=== PATIENT | female | born 1970 | race Caucasian/White ===

== ENCOUNTER 2016-07-04 08:48 | Outpatient (CLI) | payer OTHER ==
--- NOTE | 2016-07-04 09:59 | DIAGNOSTIC IMAGING REPORT ---
PROCEDURE: US COMPLETE PELVIC W/TRANSVAG INDICATION: AUB TECHNIQUE: Transabdominal and endovaginal jackson scale and color Doppler sonographic images of the female pelvis were obtained. COMPARISON: None. FINDINGS: TRANSABDOMINAL SCANS: The uterus measures 8.4 x 6.1 x 3.7 cm. Normal kidneys. Bladder is normal as visualized. TRANSVAGINAL SCANS: 8 mm left anterior intramuscular fibroid. Normal endometrial measures 6.8 mm. Left ovary measures 1.7 x 1.2 x 1.1 cm and right ovary 3.3 x 1.6 x 1.8 cm. There is vascular flow to both ovaries. No adnexal mass or free fluid in the cul-de-sac. IMPRESSION: 1. 8 mm fibroid
== END 2016-07-04 23:00 ==
LOC: US SRH 08:48
DX: N93.9 Abnormal uterine and vaginal bleeding, unspecified (principal); D25.9 Leiomyoma of uterus, unspecified

== ENCOUNTER 2016-10-07 19:55 | Emergency (ER) | payer OTHER ==
--- NOTE | 2016-10-07 22:41 | ED ORDER SUMMARY ---
..... Patient: TURNER LINCOLN [facility] VisitID: [id number] [place] [address] 46y, F Registration Date/Time: 10/07/2016 ORDER SHEET Weight: 83.9 kg (stated) Allergies: No Known Drug Allergy GENERAL ORDERS: US Venous Right Urgent (20:37 10/07/2016 HBivens A.R.N.P.) (Ack 20:40 CHagerty ER Conventions Assistant) (22:22 RFay) CBC w Diff Urgent (20:37 10/07/2016 HBivens A.R.N.P.) (Ack 20:40 CHagerty ER Conventions Assistant) (20:58 CHernandez R.N.) CMP Urgent (20:37 10/07/2016 HBivens A.R.N.P.) (Ack 20:40 CHagerty ER Conventions Assistant) (20:58 CHernandez R.N.) BNP Urgent (20:37 10/07/2016 HBivens A.R.N.P.) (Ack 20:40 CHagerty ER Conventions Assistant) (20:58 CHernandez R.N.) MEDICATION ORDERS: K-Dur PO 20 meq (Do not crush or chew, NOW) (22:36 10/07/2016 HBivens A.R.N.P.) (Ack 22:46 CHernandez R.N.) (22:47 CHernandez R.N.) IV FLUIDS: ORDER SHEET NOTES: [Electronically signed by Charles Marti R.N. (23:10/07/2016)] [Electronically signed by Bette Osorio.R.N.P. (23:10 10/07/2016)] [Electronically locked/signed by Charles Marti R.N. (23:10/07/2016)]
--- NOTE | 2016-10-07 22:41 | ED ORDER SUMMARY ---
..... Patient: TURNER LINCOLN OrderSheet [facility] VisitID: [id number] [place] [address] 46y, F Registration Date/Time: 10/07/2016 ORDER SHEET Weight: 83.9 kg (stated) Allergies: No Known Drug Allergy GENERAL ORDERS: US Venous Right Urgent (20:37 10/07/2016 HBivens A.R.N.P.) (Ack 20:40 CHagerty ER Equipment Tech) (22:22 RFay) CBC w Diff Urgent (20:37 10/07/2016 HBivens A.R.N.P.) (Ack 20:40 CHagerty ER Equipment Tech) (20:58 CHernandez R.N.) CMP Urgent (20:37 10/07/2016 HBivens A.R.N.P.) (Ack 20:40 CHagerty ER Equipment Tech) (20:58 CHernandez R.N.) BNP Urgent (20:37 10/07/2016 HBivens A.R.N.P.) (Ack 20:40 CHagerty ER Equipment Tech) (20:58 CHernandez R.N.) MEDICATION ORDERS: K-Dur PO 20 meq (Do not crush or chew, NOW) (22:36 10/07/2016 HBivens A.R.N.P.) (Ack 22:46 CHernandez R.N.) (22:47 CHernandez R.N.) IV FLUIDS: ORDER SHEET NOTES: [Electronically signed by Charles Marti R.N. (23:10/07/2016)] [Electronically signed by Bette Osorio.R.N.P. (23:10 10/07/2016)] [Electronically locked/signed by Charles Marti R.N. (23:10/07/2016)]
--- NOTE | 2016-10-07 22:41 | ED CLINICAL REPORT ---
Clinical Report - Physicians/Mid Levels [facility] [address] [place] [address] 10/07/2016 19:54 Patient: TURNER LINCOLN Time Seen: 2024; initial patient contact, initial documentation, patient care assumed. Arrived- By private vehicle. Historian- patient. HISTORY OF PRESENT ILLNESS Chief Complaint: LOWER EXTREMITY SWELLING. Modifying factors- worsened by walking. (relieved with otc diuretic). Quality not described as "pain". No radiation. This started today and is still present. Symptoms located in the area of the right ankle, right leg and right foot. The patient has had swelling, but not had redness. No difficulty walking. No bladder dysfunction, bowel dysfunction, sensory loss or motor loss. ( says since her flight sunday, the swelling is taking longer to go away and today she could push down on it with her finger and leave a finger print and she had never been able to do that before, pt would like rx water pills, she has been taking otc ones). Patient denies an injury. Similar symptoms previously: Chronically, milder. Recent medical care: Not recently seen/assessed. REVIEW OF SYSTEMS No chest pain or difficulty breathing. All systems otherwise negative, except as recorded above. PAST HISTORY See nurses notes. SOCIAL HISTORY Light tobacco smoker. Occasional alcohol use; consumes wine. No drug use. No recent travel. Is a local resident. FAMILY HISTORY Negative. ADDITIONAL NOTES The nursing notes have been reviewed with agreement regarding the chief complaint, HPI, ROS, PMH and patient medications and allergies. PHYSICAL EXAM Vital Signs: 10/07/2016 20:10 BP: 176/66. HR: 71. RR: 16. O2 saturation: 96%. Temp: 98.5 F. Pain level now: 0/10. Have been reviewed as normal and appear to be correct. Appearance: Alert. Oriented X3. No acute distress. Eyes: Pupils equal, round and reactive to light. Eyes normal inspection. Neck: Normal inspection. Neck supple. CVS: Normal heart rate and rhythm. Heart sounds normal. Respiratory: No respiratory distress. Breath sounds normal. Abdomen: Soft and nontender. No organomegaly. Back: Normal inspection. No tenderness. ROM normal. Skin: Skin intact. Skin warm and dry. Normal skin color. Normal skin turgor. Extremities: Lower extremities exhibit normal ROM. Lower extremity edema present. No signs of infection involving the lower extremities. Mild 1+ pitting edema of the right lower extremity involving the foot. No calf tenderness. Extremities otherwise negative. Gait: Normal gait. No limping gait. She was able to bear weight. Neuro, Vascular and Tendons: No pulse deficit present. Lower extremity capillary refill not prolonged. Neuro: Oriented X 3. No motor deficit. No sensory deficit. LABS, X-RAYS, AND EKG Lower Extremity Sonography: Negative study. verbal report from [employer]. Interpretation time: 2215. Laboratory Tests: CBC w Diff: (PATRICIA: 10/07/2016 20:50) ( [facility] 10/07/2016 21:19) Final results Test Result Flag Units (Reference) WHITE BLOOD COUNT 11.2 K/uL (4.5-11.5) RED BLOOD COUNT 4.08 M/uL (4.00-5.20) HEMOGLOBIN 13.1 gm/dL (12.0-16.0) HEMATOCRIT 38.1 % (36.0-46.0) MEAN CELL VOLUME 94 fL (80-100) MEAN CORPUSCULAR HGB 32 pg (26-34) MEAN CORPUSCULAR HGB CONC 34 g/dL (31-37) RED CELL DISTRIBUTION WIDTH 14.4 % (11.6-14.8) PLATELET COUNT 335 K/uL (150-400) NEUTROPHIL % 61.8 % (50-75) LYMPH % 27.6 % (25-40) MONO % 6.7 % (3-14) EOSINOPHIL % 3.6 % (0-4) BASOPHIL % 0.3 % (0-2) BNP: (PATRICIA: 10/07/2016 20:50) ( MsgRcvd 10/07/2016 21:42) Final results Test Result Flag Units (Reference) B-TYPE NATRIURETIC PEPTIDE 45.5 pg/ml (5-100) CMP: (PATRICIA: 10/07/2016 20:50) ( MsgRcvd 10/07/2016 21:30) Final results Test Result Flag Units (Reference) GLUCOSE 82 mg/dL (70-110) BUN 14 mg/dL (7-18) CREATININE 0.7 mg/dL (0.6-1.3) Estimated GFR >60 mL/min Estimated GFR- >60 mL/min Note: Persistent reduction over 3 months in eGFR<60 mL/min/1.73 m2 defines CKD. Patients with eGFR values>=60 mL/min/1.73 m2 may also have CKD if evidence ofpersistent proteinuria. Additional information may be foundat www.kidney.org. SODIUM 134 L mmol/L (136-145) POTASSIUM 3.3 L mmol/L (3.5-5.1) CHLORIDE 103 mmol/L (98-107) CARBON DIOXIDE 25 mmol/L (21-32) CALCIUM 8.8 mg/dL (8.5-10.1) TOTAL PROTEIN 7.4 g/dL (6.4-8.2) ALBUMIN 3.7 g/dL (3.3-5.0) BILIRUBIN, TOTAL 0.4 mg/dL (0.0-1.0) ALKALINE PHOSPHATASE 50 U/L (46-116) AST (SGOT) 14 L U/L (15-37) ALT (SGPT) 15 U/L (12-78) . PROGRESS AND PROCEDURES Course of Care: had discussion with pt over concerns of consistent use of diuretics could deplete her k, encouraged to f/u with pcp. Patient counseled in person regarding the patient's stable condition and diagnosis. 22:40. Differential Diagnosis: Other possible considerations: dvt, chf, renal insufficiency, dependant edema, peripheral vascular disease. Above considerations are based on history, physical exam, reassessment, laboratory data and other information. Differential diagnosis was discussed with patient. Disposition: Discharged home in good and unchanged condition (22:41). Condition: good and stable. CLINICAL IMPRESSION Right pedal edema secondary to unknown cause. No congestive heart failure, chronic venous insufficiency, cor pulmonale or hypoalbuminemia. INSTRUCTIONS Warnings: Further evaluation is necessary in order to recheck abnormal lab (must have potassium monitored if continuing to take diuretics, as discussed). GENERAL WARNINGS: Return or contact your physician immediately if your condition worsens or changes unexpectedly, if not improving as expected, or if other problems arise. Specifically return if problem worsens. Prescription Medications: HCTZ 25 mg: Take 1 orally every 24 hours. Dispense fifteen (15). No refills. Follow-up: Follow up with your doctor in about three days even if well. Call for an appointment. Summary of care provided to patient. Understanding of the discharge instructions verbalized by patient. (Electronically signed by Bette Osorio A.R.N.P. 10/07/2016 23:10)
--- NOTE | 2016-10-07 22:41 | ED NURSING NOTES ---
Clinical Report - Nurses [facility] [place] [address] 10/07/2016 19:54 Patient: TURNER LINCOLN TRIAGE Triage time 20:11. Acuity: LEVEL 4. Chief Complaint: RIGHT LOWER EXTREMITY PAIN and SWELLING. Location of symptoms- right leg and right foot. --20:20 Charles Marti R.N. 20:10 10/07/16. BP: 176/66. HR: 71. RR: 16. O2 saturation: 96%. Temp: 98.5 F (oral). Pain level now: 0/10. --20:20 Charles Marti R.N. Weight: 83.9 kg stated. Height/Length: 66 inches Per Patient. BMI: 29.9. --20:17 Charles Marti R.N. Medications None. --20:14 Charles Marti R.N. Medication/allergy information source: the patient. --20:20 Charles Marti R.N. Allergies No Known Drug Allergy. --20:14 Charles Marti R.N. History Arrived by private vehicle. Historian: patient. Accompanied by family. ( Noticed swelling on her right leg down to ankle today, with pain on the back of the leg behind the knee. Returned from [place] on Sunday. Denies SOB or CP.). Provoking / relieving factors: worsened by standing and walking; relieved by lying down. She has had swelling to right lower leg and right ankle (today). Treatment SURGERY SCHEDULING COORDINATOR: None. PAST MEDICAL HX: Negative. SURGERY HX: No history of previous surgery. SOCIAL HX: Light tobacco smoker (cigarette)- less than 1/2 a pack per day. Occasional alcohol use; consumes wine by the glass. --20:20 Charles Marti R.N. ADDITIONAL SURGERIES: no known surgeries. Interventions ID band on patient. To room. --20:20 Charles Marti R.N. PHYSICAL ASSESSMENT Ambulatory to room. GENERAL / NEURO / PSYCH: Oriented X 4. Alert. Appears in no acute distress. EXTREMITIES: Extremity pulses are within normal limits. Extremities exhibit normal ROM. Neuro-vascular status intact to the extremity. Normal gait. Right leg: swelling. Right ankle: swelling. ( Pain on the back of the right knee above her calf.). SKIN: Skin intact. Skin is warm and dry. --20:21 Charles Marti R.N. NURSING PROGRESS NOTES Extremity elevated. Neuro-vascular extremity check. Patient identifiers checked. Call light placed in reach. Side rails up x 1. Bed placed in lowest position. Brakes of bed on. Patient ready for evaluation- chart flagged and ED physician and DRY WALL FINISHER notified. --20:21 Charles Marti R.N. Patient ID band checked for patient name and birthdate. Blood samples drawn from the right antecubital space with Vacutainer and butterfly by nurse per protocol ; labeled in presence of the patient and sent to lab: [facility] set. --20:59 Charles Marti R.N. 21:19 10/07/16. BP: 170/84. HR: 57. RR: 16. O2 saturation: 97%. --21:21 Charles Marti R.N. The patient is resting quietly. Overall patient status is the same- she states feels the same. GENERAL / NEURO / PSYCH: The patient reports pain that is located in the right ankle that is mild in severity (describes right ankle pain as achy). Alert. Oriented X 4. RESPIRATORY: No respiratory distress. CVS: Capillary refill less than 2 seconds. EXTREMITIES: Neuro-vascular status intact to the extremities. SKIN: Skin is warm and dry. --21:21 Charles Marti R.N. 22:47 10/07/2016 K-DUR (Potassium Chloride Genie ER) PO 20 meq given. Allergies verified and confirmed 5 rights. --22:47 Charles Marti R.N. DISPOSITION / DISCHARGE Condition at departure: improved. No learning barriers present. Discharge instructions provided and reviewed with the patient. Reviewed medication(s) side effects, precautions, dosing and course information. Prescription(s) given to the patient. Patient verbalized understanding. Written instructions provided in Bengali. The patient was discharged home and accompanied by spouse. She left the Emergency Department ambulatory and via private vehicle. Spouse driving. --22:56 Charles Marti R.N. 22:54 10/07/16. BP: 153/72. HR: 60. RR: 16. Temp: 98.1 F. --22:56 Charles Marti R.N. Departure time: 23:09. --23:09 Charles Marti R.N. Locked/Released at 10/07/2016 23:09 by Charles Marti R.N.
--- NOTE | 2016-10-07 22:41 | ED NURSING NOTES ---
Clinical Report - Nurses [facility] [address] [place] [address] 10/07/2016 19:54 Patient: TURNER LINCOLN TRIAGE Triage time 20:11. Acuity: LEVEL 4. Chief Complaint: RIGHT LOWER EXTREMITY PAIN and SWELLING. Location of symptoms- right leg and right foot. --20:20 Charles Marti R.N. 20:10 10/07/16. BP: 176/66. HR: 71. RR: 16. O2 saturation: 96%. Temp: 98.5 F (oral). Pain level now: 0/10. --20:20 Charles Marti R.N. Weight: 83.9 kg stated. Height/Length: 66 inches Per Patient. BMI: 29.9. --20:17 Charles Marti R.N. Medications None. --20:14 Charles Marti R.N. Medication/allergy information source: the patient. --20:20 Cahrles Marti R.N. Allergies No Known Drug Allergy. --20:14 Charles Marti R.N. History Arrived by private vehicle. Historian: patient. Accompanied by family. ( Noticed swelling on her right leg down to ankle today, with pain on the back of the leg behind the knee. Returned from [place] on Sunday. Denies SOB or CP.). Provoking / relieving factors: worsened by standing and walking; relieved by lying down. She has had swelling to right lower leg and right ankle (today). Treatment INSIDE ACCOUNT EXECUTIVE: None. PAST MEDICAL HX: Negative. SURGERY HX: No history of previous surgery. SOCIAL HX: Light tobacco smoker (cigarette)- less than 1/2 a pack per day. Occasional alcohol use; consumes wine by the glass. --20:20 Charles Marti R.N. ADDITIONAL SURGERIES: no known surgeries. Interventions ID band on patient. To room. --20:20 Charles Marti R.N. PHYSICAL ASSESSMENT Ambulatory to room. GENERAL / NEURO / PSYCH: Oriented X 4. Alert. Appears in no acute distress. EXTREMITIES: Extremity pulses are within normal limits. Extremities exhibit normal ROM. Neuro-vascular status intact to the extremity. Normal gait. Right leg: swelling. Right ankle: swelling. ( Pain on the back of the right knee above her calf.). SKIN: Skin intact. Skin is warm and dry. --20:21 Charles Marti R.N. NURSING PROGRESS NOTES Extremity elevated. Neuro-vascular extremity check. Patient identifiers checked. Call light placed in reach. Side rails up x 1. Bed placed in lowest position. Brakes of bed on. Patient ready for evaluation- chart flagged and ED physician and ROAD OILER notified. --20:21 Charles Marti R.N. Patient ID band checked for patient name and birthdate. Blood samples drawn from the right antecubital space with Vacutainer and butterfly by nurse per protocol ; labeled in presence of the patient and sent to lab: [facility] set. --20:59 Charles Marti R.N. 21:19 10/07/16. BP: 170/84. HR: 57. RR: 16. O2 saturation: 97%. --21:21 Charles Marti R.N. The patient is resting quietly. Overall patient status is the same- she states feels the same. GENERAL / NEURO / PSYCH: The patient reports pain that is located in the right ankle that is mild in severity (describes right ankle pain as achy). Alert. Oriented X 4. RESPIRATORY: No respiratory distress. CVS: Capillary refill less than 2 seconds. EXTREMITIES: Neuro-vascular status intact to the extremities. SKIN: Skin is warm and dry. --21:21 Charles Marti R.N. 22:47 10/07/2016 K-DUR (Potassium Chloride Genie ER) PO 20 meq given. Allergies verified and confirmed 5 rights. --22:47 Charles Marti R.N. DISPOSITION / DISCHARGE Condition at departure: improved. No learning barriers present. Discharge instructions provided and reviewed with the patient. Reviewed medication(s) side effects, precautions, dosing and course information. Prescription(s) given to the patient. Patient verbalized understanding. Written instructions provided in Bulgarian. The patient was discharged home and accompanied by spouse. She left the Emergency Department ambulatory and via private vehicle. Spouse driving. --22:56 Charles Marti R.N. 22:54 10/07/16. BP: 153/72. HR: 60. RR: 16. Temp: 98.1 F. --22:56 Charles Marti R.N. Departure time: 23:09. --23:09 Charles Marti R.N. Locked/Released at 10/07/2016 23:09 by Charles Marti R.N.
--- NOTE | 2016-10-07 23:11 | ED MAR SUMMARY ---
..... Medication Administration [facility] [address] [place] [address] Patient: TURNER LINCOLN Visit ID: [id number] 46y, F Weight: 83.9 kg Height/Length: 66 in BMI: 29.9 ALLERGIES: No Known Drug Allergy Given 22:47 10/07/2016 Charles Marti R.N. Medication Administered: K-DUR [PO] (POTASSIUM CHLORIDE CUTAE ER), Dose: 20 meq PO. Medication Ordered: K-Dur PO 20 meq (Do not crush or chew, NOW).
--- NOTE | 2016-10-07 23:11 | ED DISCHARGE INSTRUCTIONS ---
Patient: TURNER LINCOLN General Instructions [facility] VisitID: [id number] [place] [address] 46y, F Registration Date/Time: 10/07/2016 Right pedal edema secondary to unknown cause. No congestive heart failure, chronic venous insufficiency, cor pulmonale or hypoalbuminemia. INSTRUCTIONS Warnings: Further evaluation is necessary in order to recheck abnormal lab (must have potassium monitored if continuing to take diuretics, as discussed). GENERAL WARNINGS: Return or contact your physician immediately if your condition worsens or changes unexpectedly, if not improving as expected, or if other problems arise. Specifically return if problem worsens. Prescription Medications: HCTZ 25 mg: Take 1 orally every 24 hours. Dispense fifteen (15). No refills. Follow-up: Follow up with your doctor in about three days even if well. Call for an appointment. Summary of care provided to patient. Understanding of the discharge instructions verbalized by patient. ADDITIONAL INFORMATION Heart Failure (Left Or Right Sided) The heart is a large muscle that pumps blood throughout the body. Blood carries oxygen to all the organs, muscles, and skin of your body. After the body takes the oxygen out of the blood, the blood returns to the heart. The right side of the heart collects that blood and pumps it to the lungs to receive fresh oxygen. This oxygen-rich blood from the lungs then returns to the left side of the heart where it is pumped back out to the rest of the body, starting the process all over. Heart Failure (HF) occurs when the heart muscle is weakened. This affects the pumping action of the heart. When the right side of the heart is weakened, it cant handle the blood it is receiving from the rest of the body. This blood returns to the heart through veins. When too much pressure builds up in the veins fluid leaks out into the tissues. Sulligent then causes that fluid to spread to those parts of the body that are the lowest. Therefore, one of the first symptoms of HF include swelling in the feet and ankles. If the condition worsens, the swelling can even go up past the knees. When the left side of the heart is weakened, it cant handle the blood it is receiving from the lungs. Pressure then builds up in the veins of the lungs, causing fluid to leakinto the lung tissues. This may be referred to as congestive heart failure.This causes you to feel short of breath, weak, or dizzy. These symptoms are often worse with exertion, such as climbing stairs or walking up hills. Lying flat is uncomfortable and can make your breathing worse. This may make sleeping difficult and force you to useextra pillows to sleep well. This condition may not only affect the right side of the heart or only the left side. While it may have started on one side, it often affects both sides. Causes of heart failure Coronary artery disease Prior heart attack (also known as acute myocardial infarction, or AMI) High blood pressure Damaged heart valve Diabetes Obesity Cigarette smoking Alcohol abuse Treatment Heart failure is a chronic condition. There is no cure. The purpose of medical treatment is to improve the pumping action of the heart, and remove excess water from the body. A number of medications can help achieve this goal,improvesymptoms and prevent the heart from becoming weaker. Another major goal is to better treat the caues of heart failure, such as diabetes, high blood pressure, and your lifestyle. Home care Check your weight every day. A sudden increase in weight gain could mean worsening heart failure. Use the same scale every day Weigh yourself at the same time every day Make sure the scale is on the floor, not on a rug Keep a record of your weight every day, so your doctor can see it. If you are not given a log sheet for this, keep a separate journal for this purpose. Reduce your salt (sodium) intake. Avoid high-salt foods (olives, pickles, smoked meats, salted potato chips, etc.). Do not add salt to your food at the table and use only small amounts of salt when cooking. Follow your doctors recommendations about how much fluid intake is safe. Stop smoking. Reduce alcohol use. Lose weight if you are overweight. The excess weight adds a lot of stress on the workload of the heart. Stay active. Talk to your doctor about an exercise program that is safe for your heart. Keep your feet elevated to reduce swelling. Ask your doctor about support hose as a preventive treatment for daytime leg swelling. Besides taking your medicine as instructed, an important part of treatment includes lifestyle changes such as diet, physical activity, stopping smoking, and weight control. Improve your diet. Often in the hospital, people are given a "heart healthy diet." This includes more fresh foods, lower fat, less processed foots, and lower salt. Follow-up care Follow up with your doctor as directed by our staff. Make sure to keep any appointments that were made for you as this can help better control heart failure. If an X-ray was done, you will be notified of any new findings that may affect your care. Call 911 Call 911 if you: Become severely short of breath Feel lightheaded, or feel like you might pass out or faint Have chest pain or discomfort that is different than usual, the medicines your doctor told you to use for this do not help, or the pain lasts longer than 10 to 15 minutes Suddendly develop a rapid heart rate When to seek medical care Get prompt medical attention if you have any of the following signs of worsening heart failure: Sudden weight gain (3or more pounds in one day or5or more pounds in one week) Trouble breathing not related to being active New or increased swelling of your legs or ankles Swelling or pain in your abdomen Breathing trouble at night (waking up short of breath, needing more pillows to breathe) Frequent coughing that doesnt go away Feeling much more tired than usual Leg Swelling [Bilateral] Swelling of the feet, ankles and legs is called "Edema." It is due to excess fluid collecting in the tissues. Because of gravity, excess fluid in the body settles in the lowest part. This is why the legs and feet are most affected. Some of the causes for edema include: Disease of the heart (congestive heart failure or "CHF") Prolonged standing or sitting (with the legs in the down position) Infection of the feet or legs Venous Insufficiency (congestion of blood in the veins of the legs) Varicose veins (dilated veins of the lower leg) Garters, or clothing that constricts your legs. (These will cause venous congestion by restricting blood flow.) Some medicines (hormones such as control pills; some blood pressure medicines, such as calcium channel blockers; steroids; some antidepressants such as MAO inhibitors and tricyclics.) Menstrual periods with fluid retention Renal insufficiency (a form of kidney disease) Liver failure (Some swelling is normal, but a sudden increase in leg swelling or weight gain can be a sign of a dangerous complication of ). Medical treatment will depend on the cause of your swelling. Diuretics (water pills) may be prescribed to remove excess fluid. Home Care: Do not wear garments that constrict your legs (such as garters). Elevate your legs while lying or sitting. If infection, injury or recent surgery is the cause for your swelling, stay off your legs as much as possible until symptoms improve. If your doctor says that your leg swelling is caused by venous insufficiency or varicose veins, do not sit or nurse staff industrial one place for long periods of time. Take breaks and walk about every few hours. Brisk walking is a good exercise and helps circulate the congested blood from your leg. Talk to your doctor about the use of support stockings to prevent daytime leg swelling. If your doctor says that heart disease is the cause of your leg swelling, follow a low-salt diet to prevent excess fluid retention. Follow Up with your doctor or as advised by our staff. Get Prompt Medical Attention if any of the following occur: New or worsening shortness of breath or chest pain Increasing swelling in both legs or ankles Swelling of the abdomen Redness, warmth or swelling in one leg Fever of 100.4F (38C) or higher, or as directed by your healthcare provider Yellow color to the skin or eyes Rapid, unexplained weight gain Leg Swelling (Unilateral) Swelling of the arms, feet, ankles, and legs is called edema. It is due to excess fluid collecting in the tissues. Because of gravity, excess fluid in the body settles to the lowest part. That is why the legs and feet are most affected. Some of the causes for swelling in one leg only include: Foot or leg infection Venous insufficiency (congestion of blood in the deep veins of the legs) Varicose veins (dilated veins of the lower leg) Garters or anything that constricts the leg Insect bite or sting on the foot or leg Injury or recent surgery on the foot or leg Blood clot in the deep veins of the leg Medical treatment will depend on the cause of your swelling. Home Care: Do not wear garments that constrict your legs (such as garters). Elevate your legs while lying or sitting. Take any medicines as directed. If infection, injury, or recent surgery is the cause for your swelling, stay off your legs as much as possible until symptoms improve. If your doctor says that venous insufficiency or varicose veins is the cause of leg swelling, do not sit or nurse staff industrial one place for long periods of time. Take breaks and walk around every few hours. Brisk walking is a good exercise and helps circulate the congested bloodin your leg. Talk to your doctor about the use of support stockings to prevent daytime leg swelling. Follow Up with your doctor or as advised by our staff. Get Prompt Medical Attention if any of the following occur: Shortness of breath or chest pain with breathing Coughing up blood Increased swelling, warmth or redness of the leg, ankle or foot Calf pain Fever of 100.4F (38C) or higher, or as directed by your healthcare provider Weakness, dizziness or fainting Hydrochlorothiazide Oral tablet What is this medicine? HYDROCHLOROTHIAZIDE (etelvina droe klor oh THYE a zide) is a diuretic. It increases the amount of urine passed, which causes the body to lose salt and water. This medicine is used to treat high blood pressure. It is also reduces the swelling and water retention caused by various medical conditions, such as heart, liver, or kidney disease. How should I use this medicine? Take this medicine by mouth with a glass of water. Follow the directions on the prescription label. Take your medicine at regular intervals. Remember that you will need to pass urine frequently after taking this medicine. Do not take your doses at a time of day that will cause you problems. Do not stop taking your medicine unless your doctor tells you to. Talk to your law professor regarding the use of this medicine in children. Special care may be needed. What side effects may I notice from receiving this medicine? Side effects that you should report to your doctor or health career development director as soon as possible: allergic reactions such as skin rash or itching, hives, swelling of the lips, mouth, tongue, or throat changes in vision chest pain eye pain fast or irregular heartbeat feeling faint or lightheaded, falls gout attack muscle pain or cramps pain or difficulty when passing urine pain, tingling, numbness in the hands or feet redness, blistering, peeling or loosening of the skin, including inside the mouth unusually weak or tired Side effects that usually do not require medical attention (report to your doctor or health career development director if they continue or are bothersome): change in sex drive or performance dry mouth headache stomach upset What may interact with this medicine? cholestyramine colestipol digoxin dofetilide lithium medicines for blood pressure medicines for diabetes medicines that relax muscles for surgery other diuretics steroid medicines like prednisone or cortisone What if I miss a dose? If you miss a dose, take it as soon as you can. If it is almost time for your next dose, take only that dose. Do not take double or extra doses. Where should I keep my medicine? Keep out of the reach of children. Store at room temperature between 15 and 30 degrees C (59 and 86 degrees F). Do not freeze. Protect from light and moisture. Keep container closed tightly. Throw away any unused medicine after the expiration date. What should I tell my health care provider before I take this medicine? They need to know if you have any of these conditions: diabetes gout immune system problems, like lupus kidney disease or kidney stones liver disease pancreatitis small amount of urine or difficulty passing urine an unusual or allergic reaction to hydrochlorothiazide, sulfa drugs, other medicines, foods, dyes, or preservatives or trying to get breast-feeding What should I watch for while using this medicine? Visit your doctor or health career development director for regular checks on your progress. Check your blood pressure as directed. Ask your doctor or health career development director what your blood pressure should be and when you should contact him or her. You may need to be on a special diet while taking this medicine. Ask your doctor. Check with your doctor or health career development director if you get an attack of severe diarrhea, nausea and vomiting, or if you sweat a lot. The loss of too much body fluid can make it dangerous for you to take this medicine. You may get drowsy or dizzy. Do not drive, use machinery, or do anything that needs mental alertness until you know how this medicine affects you. Do not stand or sit up quickly, especially if you are an older patient. This reduces the risk of dizzy or fainting spells. Alcohol may interfere with the effect of this medicine. Avoid alcoholic drinks. This medicine may affect your blood sugar level. If you have diabetes, check with your doctor or health career development director before changing the dose of your diabetic medicine. This medicine can make you more sensitive to the sun. Keep out of the sun. If you cannot avoid being in the sun, wear protective clothing and use sunscreen. Do not use sun lamps or tanning beds/booths. You have been given the following additional information: Heart Failure, General Peripheral Edema, Bilateral Peripheral Edema, Unilateral Hydrochlorothiazide Oral tablet (Electronically signed by Bette Osorio A.R.N.P. 10/07/2016 23:10)
--- NOTE | 2016-10-07 23:11 | ED MAR SUMMARY ---
..... Medication Administration Record [facility] [address] [place] [address] Patient: TURNER LINCOLN Visit ID: [id number] 46y, F Weight: 83.9 kg Height/Length: 66 in BMI: 29.9 ALLERGIES: No Known Drug Allergy Given 22:47 10/07/2016 Charles Marti R.N. Medication Administered: K-DUR [PO] (POTASSIUM CHLORIDE CUATE ER), Dose: 20 meq PO. Medication Ordered: K-Dur PO 20 meq (Do not crush or chew, NOW).
--- NOTE | 2016-10-07 23:11 | ED MED RECONCILIATION SUMMARY ---
Patient: TURNER LINCOLN Medication Reconciliation Report [facility] VisitID: [id number] [address] [place] [address] 46y, F Registration Date/Time: 10/07/2016 Weight: 83.9 kg Height/Length: 66 in. BMI: 29.9 ALLERGIES: No Known Drug Allergy The patient's Home Medications are listed below: NONE. The source(s) of the original Home Medication information: patient The following Medications were given to the patient in the Emergency Department: K-DUR [PO] PO 20 meq, administered: 10/07/2016 10:47:00 PM The following Medications were prescribed to the patient: HCTZ 25 mg: Take 1 orally every 24 hours. Dispense fifteen (15). No refills. -- Bette Osorio A.R.N.P.
--- NOTE | 2016-10-07 23:11 | ED MED RECONCILIATION SUMMARY ---
Patient: TURNER LINCOLN Medication Reconciliation Report [facility] VisitID: [id number] [address] [place] [address] 46y, F Registration Date/Time: 10/07/2016 Weight: 83.9 kg Height/Length: 66 in. BMI: 29.9 ALLERGIES: No Known Drug Allergy The patient's Home Medications are listed below: NONE. The source(s) of the original Home Medication information: patient The following Medications were given to the patient in the Emergency Department: K-DUR [PO] PO 20 meq, administered: 10/07/2016 10:47:00 PM The following Medications were prescribed to the patient: HCTZ 25 mg: Take 1 orally every 24 hours. Dispense fifteen (15). No refills. -- Bette Osorio A.R.N.P.
--- NOTE | 2016-10-07 23:23 | DIAGNOSTIC IMAGING REPORT ---
PROCEDURE: US VENOUS - RIGHT EXT INDICATION: SWELLING TECHNIQUE: Color Doppler duplex imaging of the deep and superficial venous system without and with compression. COMPARISON: None. FINDINGS: Deep and superficial venous system of the right lower extremity is within normal limits. There is no evidence of deep vein thrombosis or superficial thrombophlebitis. IMPRESSION: 1. Negative venous ultrasound of the right lower extremity.
== END 2016-10-07 23:10 | disposition home or self-care (01) ==
LOC: ED SRH 19:55
DX: R60.0 Localized edema (principal); F17.210 Nicotine dependence, cigarettes, uncomplicated